=== PATIENT | female | born 1990 | race Caucasian/White ===

== ENCOUNTER → 2016-09-20 | Outpatient (REF) | payer OTHER ==
[~2016-09-20] MED LIST: ACET50TA PO; ANUS2.5C2 TOP; COLA50CA3 PO; IBUP600T26 PO; MILKSUS5 PO
== END ==
LOC: M LAB REF 09:16
PROVIDERS: ATTEND Physician Assistant Medical
DX: Z20.9 Contact with and (suspected) exposure to unspecified communicable disease (principal)

== ENCOUNTER 2016-10-07 11:15 | Emergency (ER) | payer OTHER ==
[~2016-10-07] VITALS: Ht 157.5 cm; Wt 49.6 kg
[2016-10-07 11:20] VITALS: BP 102/59
[2016-10-07] MEDS ORDERED: ACETAMINOPHEN 325 MG TAB As Ordered ONE (11:59)
[2016-10-07] MEDS ORDERED: ACETAMINOPHEN 325 MG TAB PO ONE (12:00)
== END 2016-10-07 12:09 | disposition home or self-care (01) ==
LOC: M ED 11:15
DX: O9A.211 Injury, poisoning and certain other consequences of external causes complicating pregnancy, first trimester (principal); S43.492A Other sprain of left shoulder joint, initial encounter; Z3A.10 10 weeks gestation of pregnancy; X58.XXXA Exposure to other specified factors, initial encounter; Y92.091 Bathroom in other non-institutional residence as the place of occurrence of the external cause; Y93.E1 Activity, personal bathing and showering; Y99.9 Unspecified external cause status

== ENCOUNTER → 2016-10-15 | Outpatient (CLI) | payer OTHER ==
[2016-10-15 14:39] LABS: BASO % 0.4 % (0.0-1.0); EOS # 0.2 K/mm3 (0.0-0.50); EOS % 1.4 % (0.0-3.0); LARGE UNSTAINED CELL # 0.1 K/mm3 (0.0-0.4); LARGE UNSTAINED CELL % 0.8 % (0.0-4.0); LYMPH # 2.2 K/mm3 (1.5-6.5); LYMPH % 18.8 % (24.0-44.0); MEAN CORPUSCULAR HEMOGLOBIN 30.5 pg (27.0-33.0); MEAN CORPUSCULAR HGB CONC 33.9 g/dl (32.0-36.5); MEAN CORPUSCULAR VOLUME 89.8 fl (80.0-96.0); MONO # 0.6 K/mm3 (0.0-0.8); MONO % 5.1 % (0.0-5.0); NEUTROPHILS # 8.3 K/mm3 (1.8-7.7); NEUTROPHILS % 73.6 % (36.0-66.0); PLATELET COUNT, AUTOMATED 332 k/mm3 (150-450); RED CELL DISTRIBUTION WIDTH 13.3 % (11.5-14.5); WHITE BLOOD COUNT 11.2 K/mm3 (4.0-10.0)
[2016-10-15 14:41] LABS: HBsAg Prenatal NEGATIVE (NEGATIVE)
== END ==
LOC: M SMT 10:49
PROVIDERS: ATTEND Advanced Practice Midwife
DX: Z34.81 Encounter for supervision of other normal pregnancy, first trimester (principal)

== ENCOUNTER → 2016-11-15 | Outpatient (REF) | payer OTHER | LOC: M LAB REF 12:48 | PROVIDERS: ATTEND Advanced Practice Midwife | DX: Z34.82 Encounter for supervision of other normal pregnancy, second trimester (principal) ==

== ENCOUNTER → 2016-12-07 | Outpatient (CLI) | payer OTHER ==
--- NOTE | 2016-12-07 16:50 | REP ---
Obstetric sonography: History: Supervision of , 19 weeks gestation, for anatomy. Findings: Scanning through the gravid uterus demonstrates a viable single intrauterine gestation in variable lie. motion is observed and heart rate is recorded at 144 beats per minute. An anterior placenta is seen grade 0 without evidence of previa or abruption. Amniotic fluid is subjectively normal. Closed cervical length is 3.7 cm. No extrauterine abnormalities observed. The umbilical cord is seen around the neck at this juncture. No anomaly is seen. The following anatomic structures are identified and felt to be sonographically unremarkable: cranium, choroid plexus, cavum, cerebellum and posterior fossa, face and profile, lungs, four-chamber heart with left and right ventricular outflow tract views, diaphragm, left-sided stomach, abdominal wall cord insertion, three-vessel umbilical cord, kidneys and bladder, spine, upper and lower extremities. Biometry chart: BPD 4.1 cm = 18 weeks 2 days HC 14.5 cm = 17 weeks 5 days AC 13.6 cm = 19 weeks 1 day FL 2.6 cm = 17 weeks 6 days HL 2.6 cm = 18 weeks 0 days CD 1.9 cm = 18 weeks 2 days HC/AC ratio 1.06 (1.07-1.26). Cephalic index normal 0.80. Estimated weight 238 grams, 0 pounds 8 ounces, 35th percentile for 18 weeks 5 days. Impression: Viable single intrauterine gestation at 18 weeks 5 days by today's composite sonographic criteria. DORA by today's sonography May 05, 2017. Signed by Kriby Ware MD 12/11/2016 08:06 A
== END ==
LOC: M SMT 09:34
PROVIDERS: ATTEND Advanced Practice Midwife
DX: Z36 Encounter for antenatal screening of mother (principal); Z3A.18 18 weeks gestation of pregnancy

== ENCOUNTER → 2016-12-31 | Outpatient (REF) | payer OTHER | LOC: M LAB REF 13:06 | PROVIDERS: ATTEND Advanced Practice Midwife | DX: Z34.82 Encounter for supervision of other normal pregnancy, second trimester (principal) ==

== ENCOUNTER → 2017-02-27 | Outpatient (REF) | payer MEDICAID | LOC: M LAB REF 12:47 | PROVIDERS: ATTEND Obstetrics & Gynecology | DX: Z34.83 Encounter for supervision of other normal pregnancy, third trimester (principal) ==

== ENCOUNTER → 2017-03-27 | Outpatient (REF) | payer OTHER | LOC: M LAB REF 12:55 | PROVIDERS: ATTEND Advanced Practice Midwife | DX: Z34.83 Encounter for supervision of other normal pregnancy, third trimester (principal); Z3A.00 Weeks of gestation of pregnancy not specified ==

== ENCOUNTER → 2017-04-15 | Outpatient (REF) | payer OTHER | LOC: M LAB REF 13:22 | DX: Z34.83 Encounter for supervision of other normal pregnancy, third trimester (principal) | CPT/HCPCS: 87086 ==

== ENCOUNTER 2017-05-10 00:09 | Inpatient (IN) | payer OTHER ==
[2017-05-10 02:19] LABS: HEMATOCRIT 35.5 % (36.0-47.0); HEMOGLOBIN 11.1 g/dl (12.0-16.0); MEAN CORPUSCULAR HEMOGLOBIN 24.4 pg (27.0-33.0); MEAN CORPUSCULAR HGB CONC 31.3 g/dl (32.0-36.5); MEAN CORPUSCULAR VOLUME 78.2 fl (80.0-96.0); PLATELET COUNT, AUTOMATED 343 10^3/uL (150-450); RED BLOOD COUNT 4.54 10^6/uL (4.00-5.40); RED CELL DISTRIBUTION WIDTH 15.5 % (11.5-14.5); WHITE BLOOD COUNT 15.6 10^3/uL (4.0-10.0)
[2017-05-10 02:48] LABS: AMPHETAMINES URINE REFLEX NEGATIVE (NEGATIVE); BARBITURATES URINE REFLEX NEGATIVE (NEGATIVE); BENZODIAZEPINES URINE REFLEX NEGATIVE (NEGATIVE); CANNABINOIDS URINE REFLEX NEGATIVE (NEGATIVE); COCAINE METABOLITE URINE REFLE NEGATIVE (NEGATIVE); METHADONE URINE REFLEX NEGATIVE (NEGATIVE); OPIATES URINE REFLEX NEGATIVE (NEGATIVE); PHENCYCLIDINE URINE REFLEX NEGATIVE (NEGATIVE)
[2017-05-10] MEDS: PSEUDOEPHEDRINE 30 MG TAB PO (03:09)
[2017-05-10] MEDS: OXYTOCIN DRIP 30 UNITS in APPROPRIATE DILUENT 1 EA IV ×2 (03:09→11:11)
[2017-05-10] MEDS: LR 1,000 ML IV (03:09)
[2017-05-10] MEDS ORDERED: BUTORPHANOL 2 MG/ML INJ (J0595) As Ordered (04:28)
[2017-05-10] MEDS ORDERED: PROMETHAZINE INJ 25 MG/ML VIAL (J2550) As Ordered (04:29)
[2017-05-10] MEDS: PROMETHAZINE INJ 25 MG/ML VIAL (J2550) IV (04:30)
[2017-05-10] MEDS: BUTORPHANOL 2 MG/ML INJ (J0595) IV (04:30)
[2017-05-10] MEDS ORDERED: NALOXONE INJ 0.4 MG/1 ML VIAL (J2310) As Ordered (05:13)
[2017-05-10] MEDS ORDERED: DIBUCAINE 1% OINTMENT 30GM TOP (06:00)
[2017-05-10] MEDS ORDERED: METHYLERGONOVINE MALEATE 0.2 MG TAB PO (06:00)
[2017-05-10] MEDS ORDERED: RHOGAM 300 MCG (1500 IU) INJ (J2790) IM (06:00)
[2017-05-10] MEDS ORDERED: MEASLES,MUMPS,RUBELLA VACCINE INJ (MMR-II) (90707) SC (06:00)
[2017-05-10] MEDS ORDERED: DOCUSATE SODIUM 100 MG CAP PO (06:00)
[2017-05-10] MEDS ORDERED: ANUSOL HC CREAM 30GM TOP (06:00)
[2017-05-10] MEDS ORDERED: MOM 30ML SUSPENSION UDC PO (06:00)
[2017-05-10] MEDS: PRENATAL VITAMINS CHEWABLE TABLET PO (09:57)
[2017-05-10] MEDS: ACETAMINOPHEN 500 MG TAB PO ×2 (10:52→19:46)
[2017-05-10] MEDS: IBUPROFEN 800 MG TAB PO (16:07)
[2017-05-11] MEDS: IBUPROFEN 800 MG TAB PO (07:43)
[2017-05-11] MEDS: PRENATAL VITAMINS CHEWABLE TABLET PO (07:45)
== END 2017-05-11 12:15 | disposition home or self-care (01) | DRG 560 ==
LOC: M LDO 00:09 → M LDI 00:15 → M OBS 09:13
PROVIDERS: Obstetrics & Gynecology
PROC: 10E0XZZ Delivery of Products of Conception, External Approach (ICD-10-PCS; principal; 2017-05-10)
DX: O48.0 Post-term pregnancy (principal); O69.82X0 Labor and delivery complicated by other cord entanglement, without compression, not applicable or unspecified; Z37.0 Single live birth; Z3A.40 40 weeks gestation of pregnancy

== ENCOUNTER 2018-05-28 01:29 | Emergency (ER) | payer OTHER ==
[~2018-05-28] VITALS: Ht 160 cm; Wt 59.1 kg
[~2018-05-28 01:29] MED LIST changes: +IBUP-1114 PO; +MAPA500T2 PO; +PRENTAB9 PO
[2018-05-28 01:30] VITALS: BP 112/57
[2018-05-28] MEDS ORDERED: AUGM500T34 PO (04:10)
== END 2018-05-28 04:21 | disposition home or self-care (01) ==
LOC: M ED 01:29
DX: L73.9 Follicular disorder, unspecified (principal)

== ENCOUNTER → 2019-06-10 | Outpatient (REF) | payer OTHER ==
[~2019-06-10] MED LIST changes: -ACET50TA PO; +AUGM500T34 PO; +MAPA500T17 PO
== END ==
LOC: M SFHCWAGY 13:07
PROVIDERS: ATTEND Nurse Practitioner Women's Health
DX: Z12.4 Encounter for screening for malignant neoplasm of cervix (principal)

== ENCOUNTER → 2019-06-10 | Outpatient (REF) | payer OTHER | LOC: M PLALAB 07:30 | PROVIDERS: ATTEND Nurse Practitioner Women's Health | DX: Z12.4 Encounter for screening for malignant neoplasm of cervix (principal) ==

== ENCOUNTER → 2020-03-23 | Outpatient (REF) | payer OTHER ==
[~2020-03-23] MED LIST changes: +KEFL500C17 PO
[2020-03-23 15:43] LABS: APPEARANCE, URINE HAZY (CLEAR); BACTERIA, URINE AUTO NEGATIVE (NEGATIVE); BILIRUBIN, URINE AUTO NEGATIVE (NEGATIVE); BLOOD, URINE BLOOD 1+ (NEGATIVE); COLOR, URINE YELLOW (YELLOW); GLUCOSE, URINE (UA) AUTO NEGATIVE (NEGATIVE); KETONE, URINE AUTO NEGATIVE (NEGATIVE); LEUKOCYTE ESTERASE, URINE AUTO NEGATIVE (NEGATIVE); NITRITE, URINE AUTO NEGATIVE (NEGATIVE); PROTEIN, URINE AUTO NEGATIVE (NEGATIVE); RBC, URINE AUTO 2 /HPF (0-3); SPECIFIC GRAVITY URINE AUTO 1.017 (1.002-1.035); SQUAMOUS EPITHELIAL CELL UR AU 5 /HPF (0-6); UROBILINOGEN, URINE AUTO 0.2 mg/dL (0.0-2.0); WBC, URINE AUTO 3 /HPF (0-3)
[2020-03-23 16:19] LABS: INFLUENZA A AMPLIFICATION NEGATIVE (NEGATIVE); INFLUENZA B AMPLIFICATION NEGATIVE (NEGATIVE)
== END ==
LOC: M LAB REF 14:37
PROVIDERS: ATTEND Physician Assistant
DX: R50.9 Fever, unspecified (principal); M79.7 Fibromyalgia; R53.83 Other fatigue

== ENCOUNTER 2020-03-24 08:32 | Emergency (ER) | payer OTHER ==
[~2020-03-24] VITALS: Ht 160 cm; Wt 52.3 kg
[~2020-03-24 08:32] MED LIST changes: -KEFL500C17 PO
[2020-03-24] MEDS ORDERED: ONDANSETRON 4MG/2ML VIAL IV ONE (09:00)
[2020-03-24] MEDS ORDERED: NS 1,000 ML IV ONE (09:00)
[2020-03-24] MEDS ORDERED: KETOROLAC 30 MG/ML 1ML VIAL IV ONE (09:00)
[2020-03-24 09:31] LABS: BASO # 0.1 10^3/uL (0.0-0.2); BASO % 0.3 % (0.0-1.0); EOS # 0.1 10^3/uL (0.0-0.5); EOS % 0.5 % (0.0-3.0); HEMATOCRIT 44.2 % (36.0-47.0); HEMOGLOBIN 14.4 g/dl (12.0-15.5); LYMPH # 1.8 10^3/uL (1.5-5.0); LYMPH % 9.3 % (24.0-44.0); MEAN CORPUSCULAR HEMOGLOBIN 29.1 pg (27.0-33.0); MEAN CORPUSCULAR HGB CONC 32.6 g/dl (32.0-36.5); MEAN CORPUSCULAR VOLUME 89.3 fl (80.0-96.0); MONO # 1.6 10^3/uL (0.0-0.8); MONO % 8.5 % (0.0-5.0); NEUTROPHILS # 15.3 10^3/uL (1.5-8.5); NEUTROPHILS % 80.7 % (36.0-66.0); PLATELET COUNT, AUTOMATED 283 10^3/uL (150-450); RED BLOOD COUNT 4.95 10^6/uL (4.00-5.40)
[2020-03-24 09:48] LABS: ALBUMIN 3.3 GM/DL (3.2-5.2); ALT/SGPT 15 U/L (12-78); BILIRUBIN,DIRECT 0.2 MG/DL (0.0-0.2); BILIRUBIN,TOTAL 0.6 MG/DL (0.2-1.0); BLOOD UREA NITROGEN 10 MG/DL (7-18); CALCIUM LEVEL 8.5 MG/DL (8.5-10.1); CARBON DIOXIDE LEVEL 24 MEQ/L (21-32); CHLORIDE LEVEL 102 MEQ/L (98-107); CREATININE FOR GFR 0.84 MG/DL (0.55-1.30); GLOMERULAR FILTRATION RATE > 60.0 (>60); GLUCOSE, FASTING 127 MG/DL (70-100); LIPASE 42 U/L (73-393); POTASSIUM SERUM 3.5 MEQ/L (3.5-5.1); SODIUM LEVEL 135 MEQ/L (136-145)
[2020-03-24 09:50] LABS: HCG, SERUM QUALITATIVE NEGATIVE (NEGATIVE)
[2020-03-24] MEDS ORDERED: ISOVUE-370 76% 100ML VIAL As Ordered ONE (09:54)
--- NOTE | 2020-03-24 11:26 | REP ---
INDICATION: R flank pain with fever r/o infectious process. COMPARISON: None. TECHNIQUE: Abdomen and pelvis CT with IV contrast, without bowel CONTRAST: IV contrast. No bowel contrast. FINDINGS: Visualized lung nuñez are unremarkable. The hepatic parenchyma, gallbladder, pancreas and spleen are normal size and unremarkable. The adrenals are unremarkable. There is a nonobstructive 3 mm left renal calculus on image 29. No right renal calculi are identified. There are no ureteral calculi on the right or left. There is no hydronephrosis on the right or the left. There is no perinephric stranding on the right or the left. The abdominal aorta is unremarkable. There is no periaortic adenopathy or mass. There is no bowel distention or obstruction. There is no ascites. Pelvis: The uterus is retroverted. The adnexa are unremarkable. The bladder is unremarkable. There is no free fluid. The pelvic bowel loops are unremarkable. The appendix is obscured, however, there are no inflammatory changes or focal fluid collection in the abdominal right lower quadrant mesentery. IMPRESSION: Retroverted uterus. Nonobstructive left renal calculus. No hydronephrosis or perinephric stranding. No bowel distention or obstruction. No adenopathy, mass or ascites. There is no pneumoperitoneum. The appendix is obscured, however, there are no inflammatory changes in the right lower quadrant. <Electronically signed by Rodolfo Marrero > 03/24/20 1127
[2020-03-24] MEDS ORDERED: KEFL500C17 PO (11:33)
[2020-03-24] MEDS ORDERED: cefTRIAXone SOD 1 GM in D5W MINI-BAG PLUS 50 ML IV ONE (11:45)
[2020-03-24 12:17] VITALS: BP 121/78
== END 2020-03-24 12:24 | disposition home or self-care (01) ==
LOC: M ED 08:32
DX: N39.0 Urinary tract infection, site not specified (principal); N20.0 Calculus of kidney; N85.4 Malposition of uterus; F17.200 Nicotine dependence, unspecified, uncomplicated
CPT/HCPCS: 36415; 74177; 80048; 80076; 81001; 83690; 84703; 85025; 87088; 87186; 96361; 96365; 96375; 99284; J0696; J1885; J2405; Q9967

== ENCOUNTER → 2020-12-28 | Outpatient (REF) | payer OTHER ==
[~2020-12-28] MED LIST changes: +KEFL500C17 PO
== END ==
LOC: M SFHCWAGY 10:39
PROVIDERS: ATTEND Nurse Practitioner Women's Health
DX: Z12.4 Encounter for screening for malignant neoplasm of cervix (principal)

== ENCOUNTER 2022-08-14 11:55 | Emergency (ER) | payer OTHER ==
[~2022-08-14] VITALS: Ht 160 cm; Wt 53.6 kg
[~2022-08-14 11:55] MED LIST changes: +BCP PO
[2022-08-14] MEDS ORDERED: AMOX500C PO (12:07)
[2022-08-14 14:07] LABS: BASO # 0.1 10^3/uL (0.0-0.2); BASO % 0.4 % (0.0-1.0); EOS # 0.1 10^3/uL (0.0-0.5); EOS % 0.5 % (0.0-3.0); HEMATOCRIT 41.9 % (36.0-47.0); HEMOGLOBIN 14.3 g/dl (12.0-15.5); LYMPH # 1.5 10^3/uL (1.5-5.0); MEAN CORPUSCULAR HEMOGLOBIN 30.6 pg (27.0-33.0); MEAN CORPUSCULAR HGB CONC 34.1 g/dl (32.0-36.5); MEAN CORPUSCULAR VOLUME 89.7 fl (80.0-96.0); MONO # 1.2 10^3/uL (0.0-0.8); NEUTROPHILS # 13.7 10^3/uL (1.5-8.5); NEUTROPHILS % 82.7 % (36.0-66.0); PLATELET COUNT, AUTOMATED 248 10^3/uL (150-450); RED BLOOD COUNT 4.67 10^6/uL (4.00-5.40); WHITE BLOOD COUNT 16.6 10^3/uL (4.0-10.0)
[2022-08-14 14:26] LABS: RSV AMPLIFICATION NEGATIVE (NEGATIVE)
[2022-08-14 14:41] LABS: BLOOD UREA NITROGEN 8 MG/DL (9-23); CALCIUM LEVEL 8.5 MG/DL (8.5-10.1); CARBON DIOXIDE LEVEL 23 MMOL/L (20-31); CHLORIDE LEVEL 103 MMOL/L (98-107); CREATININE FOR GFR 0.73 MG/DL (0.55-1.30); GLOMERULAR FILTRATION RATE > 60.0 (>60); GLUCOSE, FASTING 70 MG/DL (60-100); POTASSIUM SERUM 3.7 MMOL/L (3.5-5.1); SODIUM LEVEL 134 MMOL/L (136-145)
[2022-08-14] MEDS ORDERED: ACETAMINOPHEN 500 MG TAB PO ONE (15:10)
[2022-08-14] MEDS ORDERED: KETOROLAC 30 MG/ML 1ML VIAL IV ONE (15:10)
[2022-08-14] MEDS ORDERED: NS 1,000 ML IV ONE (15:10)
[2022-08-14 15:42] LABS: MONO REFLEX EBV COMP NEGATIVE (NEGATIVE)
[2022-08-14] MEDS ORDERED: ISOVUE-370 76% 100ML VIAL As Ordered ONE (15:56)
[2022-08-14] MEDS ORDERED: LIDO15SO PO (17:53)
[2022-08-14] MEDS ORDERED: AMOX875T2 PO (17:53)
[2022-08-14] MEDS ORDERED: IBUP-1022 PO (17:54)
[2022-08-14] MEDS ORDERED: AUGMENTIN 875 MG TAB PO ONE (17:55)
[2022-08-14] MEDS ORDERED: LIDOCAINE VISCOUS 2% SOLN 15ML UDC SS ONE (17:55)
[2022-08-14 18:07] VITALS: BP 104/70
[2022-08-16 15:10] LABS: EBV VIRAL CAPSID AG IgG 43.3 U/mL (0.0-17.9); EBV VIRAL CAPSID AG IgM <36.0 U/mL (0.0-35.9)
== END 2022-08-14 18:16 | disposition home or self-care (01) ==
LOC: M ED 11:55
DX: J03.90 Acute tonsillitis, unspecified (principal); R13.10 Dysphagia, unspecified; Z79.3 Long term (current) use of hormonal contraceptives
CPT/HCPCS: 70491; 80048; 84702; 85025; 86308; 86664; 86665; 87631; 87880; 96361; 96374; 96375; 99284; J1100; J1885; Q9967

== ENCOUNTER → 2023-08-29 | Outpatient (REF) | payer OTHER ==
[~2023-08-29] MED LIST changes: +AMOX500C PO; +AMOX875T2 PO; +IBUP-1022 PO; +LIDO15SO8 PO
[2023-08-29 18:10] LABS: FREE T4 0.97 NG/DL (0.89-1.76); THYROID STIMULATING HORMONE 3.353 uIU/ML (0.55-4.78)
[2023-08-29 18:11] LABS: FOLLICLE STIMULATING HORMONE 4.4 mIU/ML
[2023-08-29 18:14] LABS: HCG, SERUM QUALITATIVE NEGATIVE (NEGATIVE)
== END ==
LOC: M LAB REF 17:11
PROVIDERS: ATTEND Nurse Practitioner Family
DX: N64.52 Nipple discharge (principal)

== ENCOUNTER → 2023-12-28 | Outpatient (REF) | payer OTHER | LOC: M LAB REF 19:33 | PROVIDERS: ATTEND Physician Assistant | DX: R50.9 Fever, unspecified (principal) ==

== ENCOUNTER → 2024-03-13 | Outpatient (REF) | payer OTHER | LOC: M LAB REF 16:28 | PROVIDERS: ATTEND Physician Assistant Medical | DX: B34.9 Viral infection, unspecified (principal) ==

== ENCOUNTER 2024-06-27 11:06 | Emergency (ER) | payer OTHER ==
[~2024-06-27] VITALS: Ht 160 cm; Wt 52.8 kg
[2024-06-27 12:05] LABS: BASO % 0.2 % (0.0-1.0); EOS % 0.2 % (0.0-3.0); HEMATOCRIT 41.5 % (36.0-47.0); HEMOGLOBIN 14.5 g/dl (12.0-15.5); LYMPH # 0.5 10^3/uL (1.5-5.0); LYMPH % 3.3 % (24.0-44.0); MEAN CORPUSCULAR HEMOGLOBIN 30.1 pg (27.0-33.0); MEAN CORPUSCULAR HGB CONC 34.9 g/dl (32.0-36.5); MEAN CORPUSCULAR VOLUME 86.3 fl (80.0-96.0); MONO # 0.3 10^3/uL (0.0-0.8); MONO % 2.1 % (2.0-8.0); NEUTROPHILS # 13.5 10^3/uL (1.5-8.5); NEUTROPHILS % 93.9 % (36.0-66.0); PLATELET COUNT, AUTOMATED 270 10^3/uL (150-450); RED BLOOD COUNT 4.81 10^6/uL (4.00-5.40); WHITE BLOOD COUNT 14.4 10^3/uL (4.0-10.0)
[2024-06-27 12:26] LABS: KETONE, URINE AUTO RFX 1+ mg/dL (NEGATIVE); LEUKOCYTE ESTERASE UR AUTO RFX NEGATIVE (NEGATIVE); MUCUS, URINE RFX SMALL (NEGATIVE); NITRITE, URINE AUTO RFX NEGATIVE (NEGATIVE); RBC, URINE AUTO RFX 0 /HPF (0-3); SQUAM EPITHELIAL CELL UR AURFX 10 /HPF (0-6); WBC, URINE AUTO RFX 1 /HPF (0-3); YEAST LIKE CELL URINE AUTO RFX SMALL
[2024-06-27 12:37] LABS: ALBUMIN 4.1 G/DL (3.2-5.2); BILIRUBIN,DIRECT 0.4 MG/DL (<0.4); BILIRUBIN,TOTAL 1.2 MG/DL (0.3-1.2); TOTAL PROTEIN 7.5 G/DL (5.7-8.2)
[2024-06-27] MEDS: NS (Normal Saline) 0.9% 1,000 ML IV ONE (13:36)
[2024-06-27] MEDS: ONDANSETRON 4MG 2ML VIAL IV ONE (13:36)
[2024-06-27] MEDS: METOCLOPRAMIDE INJ 10MG/2ML VIAL IV ONE (14:05)
[2024-06-27] MEDS: KETOROLAC 30 MG/ML 1ML VIAL IV ONE (14:05)
[2024-06-27] MEDS ORDERED: ISOVUE-370 76% 100ML VIAL As Ordered ONE (14:20)
[2024-06-27 16:25] VITALS: BP 110/62; TEMP 98.3; O2SAT 98
== END 2024-06-27 16:27 | disposition home or self-care (01) ==
LOC: M ED 11:06
DX: R11.10 Vomiting, unspecified (principal); Z79.1 Long term (current) use of non-steroidal anti-inflammatories (NSAID); Z79.2 Long term (current) use of antibiotics; Z79.899 Other long term (current) drug therapy
CPT/HCPCS: 74177; 80047; 80076; 81001; 83690; 84702; 85025; 87486; 87581; 87633; 87798; 87880; 96374; 96375; 99284; J1885; J2405; J2765; Q9967